=== PATIENT | female | born 1940 | race Caucasian/White ===

== ENCOUNTER → 2022-02-26 08:45 | Outpatient (CLI) | payer MEDICARE, SELFPAY ==
--- NOTE | 2022-02-26 | DI.MRI.S_ITS ---
PROCEDURE: MR BRAIN (IAC) WWO CON INDICATIONS: Sensorineural hearing loss, bilateral TECHNIQUE: Noncontrast sagittal T1 spin echo, axial FLAIR, axial gradient echo, axial diffusion and ADC through the brain. Axial thin-slice 3D CISS, coronal TruFISP, axial T1 spin echo with fat saturation through the internal auditory canals. After the administration of contrast, thin slice axial and coronal T1 spin echo with fat saturation through the internal auditory canals, and axial T1 spin echo with fat saturation through the brain. COMPARISON: Outside Film, MR, MR BRAIN WITHOUT CONTRAST, 03/17/2021, 8:26. FINDINGS: Image quality: Excellent. Cerebellopontine angles: Within the left internal auditory canal, there is a focal mass seen with moderate enhancement, as on series 12, image 8 and on series 13, image 7, which measures3 16 by 5 mm in greatest axial dimension, with a craniocaudal extent 5 mm. No left cerebellopontine angle cistern mass is seen. No right-sided masses are seen. CSF spaces: Ventricles are normal in size and shape. No extra-axial fluid collections. Basal cisterns are patent. Brain: No intracranial bleeds or mass effects. Chi-white matter interface is intact. No abnormal intracranial enhancement. Diffusion weighted images demonstrate no acute ischemic insults. Brainstem appears normal. Normal intravascular flow voids are present. Skull and face: Calvarial marrow signal is normal. Orbits appear normal. Sinuses: Sinuses and mastoids are clear. IMPRESSION: Left-sided vestibular schwannoma until proven otherwise. Dictated by: Gilbert Dyer M.D. on 02/26/2022 at 10:52 Approved by: Gilbert Dyer M.D. on 02/26/2022 at 10:54
== END ==
PROVIDERS: Referring Provider Otolaryngology; Visit Provider Otolaryngology
DX: D33.3 Benign neoplasm of cranial nerves (principal); H90.3 Sensorineural hearing loss, bilateral
CPT/HCPCS: 70553; A9579

== ENCOUNTER → 2023-02-02 12:00 | Outpatient (CLI) | payer MEDICARE, SELFPAY ==
--- NOTE | 2023-02-02 | DI.MRI.S_ITS ---
PROCEDURE: MR BRAIN (IAC) WWO CON INDICATIONS: Benign neoplasm of cranial nerves TECHNIQUE: Noncontrast sagittal T1 spin echo, axial FLAIR, axial gradient echo, axial diffusion and ADC through the brain. Axial thin-slice 3D CISS, coronal TruFISP, axial T1 spin echo with fat saturation through the internal auditory canals. After the administration of contrast, thin slice axial and coronal T1 spin echo with fat saturation through the internal auditory canals, and axial and coronal and sagittal T1 spin echo with fat saturation through the brain. COMPARISON: [facility], MR, MR IAC (BRAIN) WWO CON, 02/26/2022, 9:09. FINDINGS: Image quality: Excellent. Cerebellopontine angles: No cerebellopontine angle masses. Inner ear structures appear normally formed. There is avidly enhancing focus within the left internal auditory canal, measuring 13 mm transverse by 4 mm anteroposterior, as before. The right 7/8 nerve complex is within normal limits CSF spaces: Ventricles are normal in size and shape. No extra-axial fluid collections. Basal cisterns are patent. Brain: No intracranial bleeds or mass effects. Chi-white matter interface is intact. No abnormal intracranial enhancement. Mild diffuse cerebral volume loss. Mild degree of patchy high FLAIR signal within the periventricular and subcortical white matter. Diffusion weighted images demonstrate no acute ischemic insults. Brainstem appears normal. Normal intravascular flow voids are present. Skull and face: Calvarial marrow signal is normal. Orbits appear normal. Sinuses: Sinuses and mastoids are clear. IMPRESSION: 1. No significant change in left-sided vestibular schwannoma. 2. No acute process. No recent infarct. 3. Mild volume loss and small vessel ischemic disease. Dictated by: Renae Ambrocio M.D. on 02/04/2023 at 9:26 Transcribed by: NICOLÁS on 02/04/2023 at 9:41 Approved by: Renae Ambrocio M.D. on 02/04/2023 at 9:56
== END ==
PROVIDERS: PCP Internal Medicine; Referring Provider Otolaryngology; Visit Provider Otolaryngology
DX: D33.3 Benign neoplasm of cranial nerves (principal)
CPT/HCPCS: 70553; A9579

== ENCOUNTER → 2024-09-26 09:54 | Outpatient (CLI) | payer MEDICARE, SELFPAY ==
--- NOTE | 2024-09-26 09:56 | DI.MRI.S_ITS ---
PROCEDURE: MR BRAIN (IAC) WWO CON INDICATIONS: Benign neoplasm of cranial nerves TECHNIQUE: Noncontrast sagittal T1 spin echo, axial FLAIR, axial gradient echo, axial diffusion and ADC through the brain. Axial thin-slice 3D CISS, coronal TruFISP, axial T1 spin echo with fat saturation through the internal auditory canals. After the administration of contrast, thin slice axial and coronal T1 spin echo with fat saturation through the internal auditory canals, and axial and coronal and sagittal T1 spin echo with fat saturation through the brain. COMPARISON: Outside Film, MR, MR BRAIN WITHOUT CONTRAST, 03/17/2021, 8:26. [facility], MR, MR IAC (BRAIN) WWO CON, 02/26/2022, 9:09. [facility], MR, MR IAC (BRAIN) WWO CON, 02/02/2023, 12:15. FINDINGS: Image quality: This examination is limited by involuntary motion artifact. Cerebellopontine angles: Within the left internal auditory canal, there is an old along focus of enhancement measuring 14 by 5 mm in greatest axial dimension, with a craniocaudal extent of 4 mm. Previously, this measured 13 x 4 mm. No additional masses or areas of abnormal enhancement can be seen within the internal auditory canals or the cerebellopontine angle cisterns. CSF spaces: Ventricles are normal in size and shape. No extra-axial fluid collections. Basal cisterns are patent. Brain: No intracranial bleeds or mass effects. Chi-white matter interface is intact. No abnormal intracranial enhancement. Diffusion weighted images demonstrate no acute ischemic insults. Brainstem appears normal. Normal intravascular flow voids are present. Skull and face: Calvarial marrow signal is normal. Orbits appear normal. Sinuses: Sinuses and mastoids are clear. IMPRESSION: Stable enhancing mass seen within the left internal auditory canal, representing a vestibular schwannoma until proven otherwise. Dictated by: Gilbert Dyer M.D. on 09/28/2024 at 10:47 Approved by: Gilbert Dyer M.D. on 09/28/2024 at 10:50
== END ==
PROVIDERS: PCP Internal Medicine; Referring Provider Otolaryngology; Visit Provider Otolaryngology
DX: D33.3 Benign neoplasm of cranial nerves (principal)
CPT/HCPCS: 70553; A9579